=== PATIENT | female | born 1985 | race Caucasian/White ===

== ENCOUNTER → 2017-09-03 | Outpatient (CLI) | payer BC ==
[2017-09-03 12:01] LABS: ABSOLUTE MONOCYTES (AUTO) 0.5 10^3/uL (0.1-1.4); ABSOLUTE NEUT (AUTO) 6.2 10^3/uL (1.7-8.2); BASOPHILS % (AUTO) 0.2 % (0-2); EOSINOPHILS % (AUTO) 0.1 % (0-6); HEMATOCRIT 42.8 % (36.0-47.0); HEMOGLOBIN 14.6 g/dL (12.0-15.5); LYMPHOCYTES % (AUTO) 12.9 % (13-45); MEAN CORPUSCULAR HEMOGLOBIN 30.3 pg (27.0-33.4); MEAN CORPUSCULAR HGB CONC 34.1 g/dL (32.0-36.0); MEAN CORPUSCULAR VOLUME 89 fl (80-97); MONOCYTES % (AUTO) 6.2 % (3-13); PLATELET COUNT 270 10^3/uL (150-450); RED BLOOD COUNT 4.83 10^6/uL (3.72-5.28); RED CELL DISTRIBUTION WIDTH 13.2 % (11.5-14.0); SEGMENTED NEUTROPHILS % (AUTO) 80.6 % (42-78); TOTAL CELLS COUNTED % (AUTO) 100 %; WHITE BLOOD COUNT 7.7 10^3/uL (4.0-10.5)
[2017-09-03 12:28] LABS: ALANINE AMINOTRANSFERASE 25 U/L (9-52); ALBUMIN 4.8 g/dL (3.5-5.0); ALKALINE PHOSPHATASE 47 U/L (38-126); ANION GAP 12 (5-19); ASPARTATE AMINO TRANSFERASE 19 U/L (14-36); BILIRUBIN,DIRECT 0.2 mg/dL (0.0-0.4); BILIRUBIN,TOTAL 0.9 mg/dL (0.2-1.3); BLOOD UREA NITROGEN 13 mg/dL (7-20); CALCIUM 9.9 mg/dL (8.4-10.2); CARBON DIOXIDE 28 mmol/L (22-30); CHLORIDE 100 mmol/L (98-107); GLUCOSE 94 mg/dL (75-110); POTASSIUM 3.9 mmol/L (3.6-5.0); SODIUM 140.1 mmol/L (137-145); TOTAL PROTEIN 7.4 g/dL (6.3-8.2)
[2017-09-04 12:26] LABS: EPSTEIN BARR EARLY AG IGG AB <9.0 U/mL (0.0-8.9); EPSTEIN BARR VCA IGG AB >600.0 U/mL (0.0-17.9); EPSTEIN BARR VCA IGM AB <36.0 U/mL (0.0-35.9)
== END ==
LOC: OD 10:59
PROVIDERS: ATTEND Obstetrics & Gynecology
DX: J11.1 Influenza due to unidentified influenza virus with other respiratory manifestations (principal)
CPT/HCPCS: 36415; 80053; 85025; 86256; 86663; 86664; 86665

== ENCOUNTER → 2017-12-27 | Outpatient (CLI) | payer BC ==
--- NOTE | 2017-12-27 11:22 | RADIOLOGY REPORT (SQ) ---
EXAM DESCRIPTION: U/S ABDOMEN LIMITED W/O DOP COMPLETED DATE/TIME: 12/27/2017 7:00 am REASON FOR STUDY: RUQ PAIN (R10.11) R10.11 RIGHT UPPER QUADRANT PAIN COMPARISON: None. TECHNIQUE: Dynamic and static grayscale images acquired of the abdomen and recorded on PACS. Additio nal selected color Doppler and spectral images recorded. LIMITATIONS: None. FINDINGS: PANCREAS: Midline pancreas unremarkable LIVER: No masses. Echotexture normal. LIVER VASCULATURE: Normal directional flow of the main portal vein and hepatic veins. GALLBLADDER: No stones. Normal wall thickness. No pericholecystic fluid. ULTRASOUND-DETECTED HUI'S SIGN: Negative. INTRAHEPATIC DUCTS AND COMMON DUCT: CBD and intrahepatic ducts normal caliber. No filling defects. INFERIOR VENA CAVA: Normal flow. AORTA: No aneurysm. RIGHT KIDNEY: Normal size. Normal echogenicity. No solid or suspicious masses. No hydronephrosis. No calcifications. PERITONEAL AND RIGHT PLEURAL SPACE: No ascites or effusions. OTHER: No other significant findings. IMPRESSION: NORMAL RIGHT UPPER QUADRANT ULTRASOUND. TECHNICAL DOCUMENTATION: JOB ID: [id number] [employer]- All Rights Reserved Reading location - IP/workstation name: [email or web address]
== END ==
LOC: RAD 06:15
PROVIDERS: ATTEND Specialist
DX: R10.11 Right upper quadrant pain (principal)
CPT/HCPCS: 76705

== ENCOUNTER → 2019-05-15 | Outpatient (CLI) | payer BC ==
[2019-05-15 15:44] LABS: ABSOLUTE BASOPHILS # (AUTO) 0.1 10^3/uL (0.0-0.2); ABSOLUTE EOSINOPHILS # (AUTO) 0.1 10^3/uL (0.0-0.6); ABSOLUTE MONOCYTES (AUTO) 0.6 10^3/uL (0.1-1.4); ABSOLUTE NEUT (AUTO) 6.3 10^3/uL (1.7-8.2); BASOPHILS % (AUTO) 0.7 % (0-2); EOSINOPHILS % (AUTO) 1.1 % (0-6); HEMATOCRIT 40.6 % (36.0-47.0); HEMOGLOBIN 13.9 g/dL (12.0-15.5); LYMPHOCYTES % (AUTO) 22.3 % (13-45); MEAN CORPUSCULAR HEMOGLOBIN 30.6 pg (27.0-33.4); MEAN CORPUSCULAR HGB CONC 34.2 g/dL (32.0-36.0); MEAN CORPUSCULAR VOLUME 89 fl (80-97); MONOCYTES % (AUTO) 6.5 % (3-13); PLATELET COUNT 250 10^3/uL (150-450); RED BLOOD COUNT 4.55 10^6/uL (3.72-5.28); SEGMENTED NEUTROPHILS % (AUTO) 69.4 % (42-78); TOTAL CELLS COUNTED % (AUTO) 100 %; WHITE BLOOD COUNT 9.1 10^3/uL (4.0-10.5)
[2019-05-15 16:10] LABS: ANION GAP 10 (5-19); BLOOD UREA NITROGEN 15 mg/dL (7-20); CALCIUM 9.5 mg/dL (8.4-10.2); CARBON DIOXIDE 29 mmol/L (22-30); CHLORIDE 99 mmol/L (98-107); GLUCOSE 98 mg/dL (75-110); POTASSIUM 3.8 mmol/L (3.6-5.0)
== END ==
LOC: LAB 15:15
PROVIDERS: ATTEND Specialist
DX: J32.0 Chronic maxillary sinusitis (principal); R53.83 Other fatigue
CPT/HCPCS: 36415; 80048; 84443; 85025; 86308

== ENCOUNTER → 2019-06-26 | Outpatient (CLI) | payer BC ==
[2019-06-26 17:42] LABS: C-REACTIVE PROTEIN < 5.0 mg/L (<10.0)
[2019-06-28 13:36] LABS: ANTICHROMATIN AB <0.2 AI (0.0-0.9); CENTROMERE B AB <0.2 AI (0.0-0.9); JO-1 ANTIBODY (ANACOMP) <0.2 AI (0.0-0.9); SJOGREN'S ANTI-SS-B AB <0.2 AI (0.0-0.9); SJOGREN'S SS-A ANTIBODY <0.2 AI (0.0-0.9)
[2019-06-28 18:03] LABS: DNA DOUBLE STRAND ANTIBODY ANA 5 IU/mL (0-9)
== END ==
LOC: OD 14:50
PROVIDERS: ATTEND Family Medicine
DX: R53.83 Other fatigue (principal); M25.50 Pain in unspecified joint
CPT/HCPCS: 36415; 82306; 82607; 84443; 85652; 86140; 86225; 86235; 86430

== ENCOUNTER → 2019-08-19 | Outpatient (CLI) | payer BC ==
--- NOTE | 2019-08-19 10:46 | XCELERA REPORT ---
[address] [address] Transthoracic Echocardiogram Report Name: TRAVIS PAYTON Age: 34 yrs Gender: Female : 1985 Patient Status: Outpatient Patient Location: [facility] Study Date: 08/19/2019 09:23 AM Height: 63 in Weight: 170 lb BSA: 1.8 m2 Reason For Study: PROLAPSE MV Ordering Physician: SHAUN COE Performed By: Ed Maya Interpretation Summary LV systolic function is normal. Trace MR, trace TR, trace PI. Normal diastolic function. No regional wall motion abnormalities. MMode/2D Measurements & Calculations RVDd: 2.9 cm LVIDd: 5.0 cm FS: 31.2 % Ao root diam: IVSd: 0.79 cm LVIDs: 3.4 cm EDV(Teich): 3.3 cm LVPWd: 0.79 cm 118.8 ml Ao root area: ESV(Teich): 49.1 ml 8.6 cm2 LA dimension: EF(Teich): 58.7 % 2.6 cm LVLd ap4: 7.9 cm SV(MOD-sp4): EDV(MOD-sp4): 65.0 ml 100.0 ml LVLs ap4: 6.9 cm ESV(MOD-sp4): 35.0 ml EF(MOD-sp4): 65.0 % Doppler Measurements & Calculations MV E max taras: MV P1/2t max taras: Ao V2 max: LV V1 max P.0 cm/sec 61.5 cm/sec 106.9 cm/sec 3.8 mmHg MV A max taras: MV P1/2t: 67.7 msec Ao max P.6 mmHg LV V1 max: 47.4 cm/sec MVA(P1/2t): 3.2 cm2 97.2 cm/sec MV E/A: 1.2 MV dec slope: 266.2 cm/sec2 MV dec time: 0.23 sec PA V2 max: PI end-d taras: MV P1/2t-pr_phl: 69.4 cm/sec 90.1 cm/sec 67.7 msec PA max P.9 mmHg Left Ventricle The left ventricle is normal in size, thickness and function. Left ventricular systolic function is normal. LV EF is 60-65%. Doppler measurements suggest normal left ventricular diastolic function. The left ventricular wall motion is normal. There is no thrombus. Right Ventricle The right ventricle is normal in size, thickness and function. The right ventricular systolic function is normal. Atria The right atrium is normal. The left atrial size is normal. There is no Doppler evidence for an interatrial shunt. Mitral Valve The mitral valve is normal in structure and function. There is no mitral valve stenosis. There is a trace amount of mitral regurgitation. Aortic Valve The aortic valve is normal in structure and function. The aortic valve is trileaflet and normal in structure. The gradient across the valve reflects no hemodynamically significant degree of stenosis. No insufficiency seen. No aortic regurgitation is present. Tricuspid Valve The tricuspid is normal in structure and function. There is a trace or physiologic amount of tricuspid regurgitation. Pulmonic Valve The pulmonic valve is normal in structure and function. There is a trace or physiologic amount of pulmonic regurgitation. : SHAUN COE Antonio
== END ==
LOC: SP 08:37
PROVIDERS: ATTEND Internal Medicine Cardiovascular Disease
DX: I34.1 Nonrheumatic mitral (valve) prolapse (principal)
CPT/HCPCS: 93306

== ENCOUNTER → 2020-01-27 | Outpatient (CLI) | payer BC | LOC: OD 14:50 | PROVIDERS: ATTEND Otolaryngology | DX: J30.9 Allergic rhinitis, unspecified (principal) | CPT/HCPCS: 36415; 82785; 86003 ==